=== PATIENT | male | born 1970 | race Caucasian/White ===

== ENCOUNTER 2019-02-22 13:06 | Emergency (ER) | payer OTHER, SELFPAY ==
[2019-02-22 13:10] VITALS: BP 168/94; PULSE 97; RESP 16; TEMP 36.7; O2SAT 98
--- NOTE | 2019-02-22 13:23 | DI.RAD.S_ITS ---
PROCEDURE: XR FINGER LT MIN 2V INDICATIONS: screw in thumb TECHNIQUE: AP hand, 2 views of the left first finger(s) acquired. COMPARISON: None. FINDINGS: Bones: No fractures or dislocations. No suspicious bony lesions. Soft tissues: No suspicious soft tissue calcifications. Metallic screw is embedded in the soft tissues of the first digit distal to the tuft of the first distal phalange. IMPRESSION: No fracture. Metallic screw embedded in the soft tissues of the distal first left digit. Dictated by: Lorena Guerra MD, PhD on 02/22/2019 at 13:42 Approved by: Lorena Guerra MD, PhD on 02/22/2019 at 13:43
[2019-02-22] MEDS: TET,DIPH,PERTUSS(ACELL),VAC/PF 0.5 ML SYRINGE IM (14:00)
--- NOTE | 2019-02-22 14:39 | PC.NURSE ---
now soaking thumb at this time
[2019-02-22 15:09] VITALS: BP 140/78; PULSE 76; RESP 16; O2SAT 100
[2019-02-22] MEDS: BACITRACIN OINT 0.9 GM PCKT 1 APPLIC TOP (15:14)
[2019-02-22] MEDS: cephALEXin 250 MG CAPSULE 500 MG PO (15:18)
--- NOTE | 2019-02-23 00:27 | ED.WOUNDLAC ---
HPI - Wound/Laceration <GRAHAM Tobin - Last Filed: 02/23/19 00:47> General Chief Complaint: Wound/Laceration Stated Complaint: screw in left thumb Time Seen by Provider: 02/22/19 13:20 Source: patient Mode of arrival: ambulatory Limitations: no limitations History of Present Illness HPI narrative: This is a 48-year-old male, history of remote smoker, presents with family after he accidentally drilled 1/4 inch screw to his left thumb by a screw gone. Patient reports the screw gone slipped out of his hand and while he was trying to catch accidentally injured his thumb. Right hand is dominant hand. He thinks he had last tetanus immunization 4-5 years ago. Patient reports 7/10 pain but he is able to move his left thumb and has sensation. Patient reports his about having knee surgery by Dr. Gannon next Thursday. Related Data Previous Rx's Medication Instructions Recorded cephalexin [Keflex] 500 mg PO Q6H 7 Days #28 cap 02/22/19 Allergies Allergy/AdvReac Type Severity Reaction Status Date / Time No Known Drug Allergies Allergy Verified 02/22/19 13:14 Review of Systems <GRAHAM Tobin - Last Filed: 02/23/19 00:47> Review of Systems ROS Unobtainable: All systems reviewed & are unremarkable except as noted in HPI and below PFSH <GRAHAM Tobin - Last Filed: 02/23/19 00:47> Medical History (Updated 02/23/19 @ 00:30 by GRAHAM Tobin) No significant past medical history (Acute) Surgical History No pertinent past surgical history (Acute) Social History Smoking Status: Unknown if ever smoked Social History Smoking Status: Former smoker Exam <GRAHAM Tobin - Last Filed: 02/23/19 00:47> Narrative Exam Narrative: General appearance: well developed, well nourished, in no acute distress. Head: normocephalic, atraumatic, no scalp lesions, non-tender. Eye: pupil equal, round. EOMI. Nose: nares patent. Oral: mucosa moist. Neck/Thyroid: neck supple, full range of motion, no visible masses. Skin: no suspicious rashes, lesions over visible areas. Warm and dry. Heart: no clubbing, no cyanosis, no edema. Lungs: Breathing even and unlabored. No stridor. No accessory muscles used. Chest: normal shape and expansion. Abdomen: non-obese, non-distended. Neurologic: alert and oriented. Cognitive exam, [employer] and PNS grossly intact on informal exam. Psych: good eye contact, normal affect. Initial Vital Signs Initial Vital Signs: Vital Signs Temperature 98.1 F 02/22/19 13:10 Pulse Rate 97 H 02/22/19 13:10 Respiratory Rate 16 02/22/19 13:10 Blood Pressure 168/94 H 02/22/19 13:10 Pulse Oximetry 98 02/22/19 13:10 Extrem Right upper extremity: normal to inspection and full ROM Left upper extremity: hand Details: normal capillary refill, neuromotor exam normal (slow but controlled movements due to pain) Details: wrist extension normal, thumb opposition normal, thumb IP flexion normal, thumb ADduction normal and fingers 2-5 ABduction normal, neurosensory exam normal, tendon exam normal, tenderness, normal ROM of fingers, foreign body (1/4 inch sharp metal screw) Location: of the thumb Location: at the distal phalanx and involving the fingernail and puncture wound (L thumb screw puncture from kennedy aspect through and out to nail) Right lower extremity: normal to inspection and full ROM Left lower extremity: normal to inspection and full ROM <Olga Ellison DO - Last Filed: 02/23/19 19:25> Initial Vital Signs Initial Vital Signs: Vital Signs Temperature 98.1 F 02/22/19 13:10 Pulse Rate 97 H 02/22/19 13:10 Respiratory Rate 16 02/22/19 13:10 Blood Pressure 168/94 H 02/22/19 13:10 Pulse Oximetry 98 02/22/19 13:10 Procedures <GRAHAM Tobin - Last Filed: 02/23/19 00:47> Foreign Body OTHER Time Out Performed: yes Site: left and upper extremity (distal 4th thumb) Description of foreign body: other (metal screw) Sedation/Analgesia: other (pateint received lidocaine 1% mixed with bupivacaine 0.25% w/o epi as nerve block, used 2 mL) Technique: removal with forceps Confirmed by:: direct visualization and radiograph Complications: none Post-procedure exam: awake, alert, normal BP, normal HR and normal O2 sat Neurovascular: no signs of compartment syndrome and other (pateint received lidocaine 1% mixed with bupivacaine 0.25% w/o epi and still felt numbed) Course <GRAHAM Tobin - Last Filed: 02/23/19 00:47> Orders Ordered: Discontinued Medications Bacitracin (Bacitracin) 1 applic TOP NOW ONE Stop: 02/22/19 15:10 Last Admin: 02/22/19 15:14 Dose: 1 applic Documented by: MEISENB Bupivacaine HCl (Sensorcaine 0.25%) 1 ml INJ INTRA-OP ONE Stop: 02/22/19 13:54 Last Admin: 02/22/19 15:21 Dose: Not Given Documented by: MEISENB Bupivacaine HCl (Sensorcaine 0.25% (Pf)) 5 ml SUBCUT NOW ONE Stop: 02/22/19 14:05 Last Admin: 02/22/19 15:20 Dose: Not Given Documented by: MEISENB Cephalexin HCl (Keflex) 500 mg PO NOW ONE Stop: 02/22/19 14:43 Last Admin: 02/22/19 15:18 Dose: 500 mg Documented by: MEISENB Diphtheria/Tetanus/Acell Pertussis (Adacel) 0.5 ml IM .ONCE ONE Stop: 02/22/19 13:55 Last Admin: 02/22/19 14:00 Dose: 0.5 ml Documented by: KBROTEM Lidocaine HCl (Xylocaine 1%) 10 ml INJ NOW ONE Stop: 02/22/19 13:54 Last Admin: 02/22/19 15:21 Dose: Not Given Documented by: MEISENB Lidocaine HCl (Xylocaine 1% (Pf)) 2 ml SUBCUT NOW ONE Stop: 02/22/19 14:05 Last Admin: 02/22/19 15:20 Dose: Not Given Documented by: MEISENB <Olga Ellison DO - Last Filed: 02/23/19 19:25> Orders Ordered: Discontinued Medications Bacitracin (Bacitracin) 1 applic TOP NOW ONE Stop: 02/22/19 15:10 Last Admin: 02/22/19 15:14 Dose: 1 applic Documented by: MEISENB Bupivacaine HCl (Sensorcaine 0.25%) 1 ml INJ INTRA-OP ONE Stop: 02/22/19 13:54 Last Admin: 02/22/19 15:21 Dose: Not Given Documented by: MEISENB Bupivacaine HCl (Sensorcaine 0.25% (Pf)) 5 ml SUBCUT NOW ONE Stop: 02/22/19 14:05 Last Admin: 02/22/19 15:20 Dose: Not Given Documented by: MEISENB Cephalexin HCl (Keflex) 500 mg PO NOW ONE Stop: 02/22/19 14:43 Last Admin: 02/22/19 15:18 Dose: 500 mg Documented by: MEISENB Diphtheria/Tetanus/Acell Pertussis (Adacel) 0.5 ml IM .ONCE ONE Stop: 02/22/19 13:55 Last Admin: 02/22/19 14:00 Dose: 0.5 ml Documented by: KBROTEM Lidocaine HCl (Xylocaine 1%) 10 ml INJ NOW ONE Stop: 02/22/19 13:54 Last Admin: 02/22/19 15:21 Dose: Not Given Documented by: MEISENB Lidocaine HCl (Xylocaine 1% (Pf)) 2 ml SUBCUT NOW ONE Stop: 02/22/19 14:05 Last Admin: 02/22/19 15:20 Dose: Not Given Documented by: DEANNASENB MDM - Wound/Laceration <Tony GRAHAM Woodall - Last Filed: 02/23/19 00:47> Differential Diagnosis Differential diagnosis: Likely other (puncture wound, foreign body, distal phalanx of L thumb fracture) Medical Records Attestation: I reviewed the patient's medical records. Imaging Data XR-finger LT: Radiologist's impression: [address] [address] XRay Report Signed Patient: Devonte Marquez LMR#: [id number] : 1970Acct:[id number] Age/Sex: 48 / MDate of Service: 02/22/19 Loc: ED Accession Number: [id number] Procedure: XR finger LT min 2V Ordering Provider: Olga Ellison D.O. PROCEDURE: XR FINGER LT MIN 2V INDICATIONS: screw in thumb TECHNIQUE: AP hand, 2 views of the left first finger(s) acquired. COMPARISON: None. FINDINGS: Bones: No fractures or dislocations. No suspicious bony lesions. Soft tissues: No suspicious soft tissue calcifications. Metallic screw is embedded in the soft tissues of the first digit distal to the tuft of the first distal phalange. IMPRESSION: No fracture. Metallic screw embedded in the soft tissues of the distal first left digit. Dictated by: Lorena Guerra MD, PhD on 02/22/2019 at 13:42 Approved by: Lorena Guerra MD, PhD on 02/22/2019 at 13:43 [facility] Narrative Medical decision making narrative: This is a 48-year-old gentleman who min to ED with her wound and foreign body placed in his left distal phalanx of left thumb. X-ray was obtained with no fracture. Patient's finger was anesthetized as nerve block, the partner into sharp metal screw was removed manually. He soaked the affected finger into Hibiclens mixed water for 15 minutes. His wound has been dressed with bacitracin and bulky dressing. He was vaccinated with Tdap today. He was medicated with 1st dose of Keflex in [place] to home with the prescription for next 7 days. Return precautions including signs and symptoms for infection discussed with patient. Patient was advised to follow up with his primary care physician in 2-3 days for wound recheck. Patient agrees with treatment plan and no further questions were expressed at this time. Discharge Plan Departure Patient Disposition: Home Clinical Impression: Puncture wound Acute foreign body of finger Qualifiers: Encounter type: initial encounter Qualified Code(s): S60.459A - Superficial foreign body of unspecified finger, initial encounter Discharge Date/Time: 02/22/19 15:32 Instructions: DI for Puncture Wound Activity Restrictions/Additional Instructions: You have been diagnosed with [foreign body, screw, on left thumb and removal; Puncture wound]. What to do: *Take your medications as directed. You were given 1st dose of Keflex while in ED. Please complete a course of antibiotic medication unless this gives you allergy reaction. Please keep your wound clean and dry. Please do not soak it in water, bath, vera water and etc. You can take [id number] Tylenol and/or Motrin as needed for discomfort and inflammation. Use ice pack for next couple of days and elevated as much as you can. *Follow up with your primary care provider in 2-3 days for wound recheck, call for an appointment. Let them know you were seen in the ED and that we asked you to be seen in follow up. *Return to ED if you have any new, worsening, or concerning symptoms, such as [increasing swelling, redness, warmth, pain, pus-like discharge, any acute concerns]. Prescriptions: New cephalexin [Keflex] 500 mg capsule 500 mg PO Q6H 7 Days Qty: 28 RF: 0 <Olga Ellison DO - Last Filed: 02/23/19 19:25> Cosign ED Attending Cosignature Attestation: I was immediately available in the department for consultation. This documentation has been reviewed and I agree with assessment and plan. Supervised by Olga Ellison DO
== END 2019-02-22 15:32 | disposition home or self-care (01) ==
PROVIDERS: Emergency Provider Nurse Practitioner Family
DX: S61.042A Puncture wound with foreign body of left thumb without damage to nail, initial encounter (principal); S60.459A Superficial foreign body of unspecified finger, initial encounter; Z23 Encounter for immunization
CPT/HCPCS: 73140; 90471; 99283; 90715